=== PATIENT | male | born 1950 | race Caucasian/White ===

== ENCOUNTER 2016-12-25 08:33 | Day surgery (SDC) ==
[2016-12-25] MEDS ORDERED: LR 1,000 ML ONE (10:11)
[2016-12-25] MEDS ORDERED: REGLAN ONE (10:11)
[2016-12-25] MEDS ORDERED: PEPCID ONE (10:11)
[2016-12-25] MEDS ORDERED: KEFZOL 1 GM/D5W 50 ML ONE (10:12)
--- NOTE | 2016-12-25 11:03 | EKG Report ---
Test Performed on : 12/25/2016 10:24:23 AM Test Reason : per MD order Blood Pressure : / mmHG Vent. Rate : 052 BPM Atrial Rate : 052 BPM P-R Int : 182 ms QRS Dur : 140 ms QT Int : 482 ms P-R-T Axes : 036 -76 052 degrees QTc Int : 448 ms Sinus bradycardia. Right bundle branch block Left anterior fascicular block Bifascicular block Abnormal ECG No previous ECGs available Confirmed by Iliana SAEED, Shayne Shannon ([id number]) on 12/25/2016 3:42:29 PM
[2016-12-25] MEDS ORDERED: MARCAINE 0.25% PF/EPI 1:200,000 ONE (13:42)
[2016-12-25] MEDS ORDERED: DIPRIVAN 1% ONE (14:45)
--- NOTE | 2016-12-25 15:26 | OPERATIVE NOTE ---
PROCEDURE DATE: 12/25/2016 PREOPERATIVE DIAGNOSIS: Traumatic hematoma of the back. POSTOPERATIVE DIAGNOSIS: Traumatic hematoma of the back. PROCEDURE: Incision and drainage of seroma on the back. SURGEON: Preet Diaz MD. ANESTHESIA: General. ESTIMATED BLOOD LOSS: 10 mL. COMPLICATIONS: None apparent. FINDINGS: A large hematoma in the lumbosacral soft tissues. TECHNIQUE: He was brought to the operating room, general anesthesia was induced, and he was placed on his left side. He was prepped and draped in usual sterile fashion. An incision was made with a 15 blade through the skin and soft tissue of the right lower back. I entered the hematoma cavity. A large amount of thin hematoma fluid was drained out. An incision was made over the right lateral hip, and a #10 RANDY drain was placed in the abscess cavity and brought out through this lateral incision. It was anchored to the skin with 3-0 nylon. The skin was closed with interrupted 3-0 nylon. A sterile dressing was applied. There were no apparent complications.
[2016-12-25] MEDS ORDERED: NORCO-7.5 ONE (15:47)
[2016-12-25] MEDS ORDERED: NORCO-10 PO PRN (15:50)
[2016-12-25 16:12] VITALS: BP 156/98
== END 2016-12-25 16:15 | disposition home or self-care (01) ==
LOC: OR 08:33
PROVIDERS: ATTEND Surgery
DX: S30.0XXA Contusion of lower back and pelvis, initial encounter (principal); I10 Essential (primary) hypertension
CPT/HCPCS: 85014; 93005; 93010; J0690; J7120

== ENCOUNTER 2016-12-29 10:47 | Inpatient (IN) ==
[2016-12-29] MEDS ORDERED: ZOFRAN IV PRN (11:10)
[2016-12-29] MEDS ORDERED: SOLU-MEDROL 125 MG in NS 100 ML IV SCH (11:15)
[2016-12-29 12:48] LABS: MANUAL DIFF NEEDED? NO
[2016-12-29 12:52] LABS: BASO% 0.1 % (0.0-0.8); EOS# 0.01 X1000 (0.0-0.7); EOS% 0.1 % (0.0-10.0); HEMATOCRIT 42.3 % (42.0-52.0); HEMOGLOBIN 14.4 g/dL (14.0-18.0); IMM GRAN# 0.03 X1000 (0.0-0.04); IMM GRAN% 0.2 % (0.0-0.5); LYMPH% 4.9 % (20.5-51.1); MCH 30.6 PG (27-31); MONO# 1.61 X1000 (0.11-0.59); MONO% 11.4 % (1.7-9.3); MPV 11.3 FL (7.4-10.4); NEUT% 83.3 % (42.2-75.2); PLT 229 X1000 (130-400)
[2016-12-29] MEDS: ROCEPHIN 1 GM/NS 50 ML IV SCH (12:52)
[2016-12-29] MEDS: POTASSIUM CHLORIDE 20 MEQ, MAGNESIUM SULFATE 2 GM, THIAMINE 100 MG, FOLIC ACID 1 MG, M.... IV SCH ×12 (12:53→22:18)
[2016-12-29] MEDS: SOLU-MEDROL IV SCH ×2 (12:54→17:07)
[2016-12-29] MEDS ORDERED: TYLENOL PO PRN (13:04)
[2016-12-29 13:14] LABS: CALCIUM 8.8 mg/dL (8.8-10.2); POTASSIUM 3.6 mmol/L (3.5-5.1); TOTAL BILIRUBIN 0.5 mg/dL (0.20-1.00); TOTAL PROTEIN 6.9 g/dL (6.3-8.3)
[2016-12-29] MEDS: LEVAQUIN 500 MG/D5W 100 ML IV SCH (13:42)
--- NOTE | 2016-12-29 14:25 | Diag Imaging Result Document ---
PROCEDURE NAME: CHEST-2 VIEWS - 12/29/2016 FRONTAL AND LATERAL CHEST, TWO VIEWS: FINDINGS: The heart is not enlarged. The vessels are not distended. No pleural effusions. There are increased markings in the left base. No consolidation. Moderate degenerative spine changes. IMPRESSION: Atelectasis versus a small infiltrate in the left lower lobe.
--- NOTE | 2016-12-29 18:16 | HISTORY AND PHYSICAL ---
CHIEF COMPLAINT: Fever, weak, sick. PRESENT ILLNESS: This is a 66-year-old white male that underwent a outpatient surgical procedure on Wednesday of last week for a draining of a large hematoma of his lumbosacral area subcutaneous mass. Shortly after arriving home Wednesday evening he began having fever and chills and sweats which progressed to the weekend. Wednesday and Wednesday showed that his condition worsened. He was having clammy sweats, arthralgias, myalgias, felt terrible. Yesterday was the same. In spite of his 's urgings, he did not wish to come to the doctor. On the morning of this admission he did present to my office where he was found to be in moderate to severe distress due to weakness and generalized malaise and low-grade temperature of 100.9 degrees. Upon presenting to the exam room he became vasovagal with syncope. He was laid in the floor where he was evaluated. EKG showed normal sinus rhythm. Blood pressure showed 132/77. He is very clammy and slightly diaphoretic. His condition quickly improved with lying the patient on the floor, raising his legs. During the course of the workup here in the office a flu swab was obtained which revealed positive flu type A. His also tested positive. Because of his overall weakened condition, he is admitted for further evaluation and treatment. PAST SURGICAL HISTORY: He had a left knee arthroscope many years ago. MEDICAL ILLNESSES: He has no known medical illnesses other than maybe low-grade hypertension, some mild arthritis. CURRENT MEDICATIONS: Include lisinopril 10 mg a day, meloxicam 15 mg a day. ALLERGIES: To no known drugs. SOCIAL HISTORY: He is a white male with 1 child. Loves to [employer], loves to garden, works outside. He is retired from [employer]. He works for [employer] during the summer. SOCIAL HISTORY: He does not smoke. He does occasionally use smokeless skoal. He does not use alcohol. FAMILY HISTORY: Remarkable for his mom who is living at age 80. He has 2 brothers living, 5 sisters living. Dad of COPD at age 75. He has 2 sisters that had MIs. His father did have coronary artery bypass graft and had pancreatic cancer as well. PHYSICAL EXAMINATION: GENERAL: Shows a very pale, slightly clammy white male who is awake, alert at this time. VITAL SIGNS: Temperature is 100.9 degrees, pulse 74, respirations 24, unlabored, blood pressure 132/77, weight 214 pounds. HEENT: TMs are clear. Pupils are equally round, reactive. Nasal mucosa is moist. Oropharynx is slightly dry. NECK: Supple. No meningismus. LUNGS: Show very harsh rales, rhonchi bilaterally. HEART: With a slightly tachycardic rhythm. ABDOMEN: Soft, nontender, no masses. GENITOURINARY: Normal male. MUSCULOSKELETAL: Neurologically shows slight tenting of the skin. Moves all extremities symmetrically. He is awake, alert and oriented x3. He is however quite weak and has to walk with assistance. LABORATORY DATA: Flu swab as stated was positive for type A. White blood cell count 14.16, hemoglobin and hematocrit 14 and 42 respectively, MCV is 90, platelets 229,000, 83 polys. Sodium 133, potassium 3.6, chloride 99, CO2 21, BUN of 21, creatinine 1.5, glucose 108, calcium 8.8, total bilirubin 0.5, AST 28, ALT 27, alkaline phosphatase 58, CK 346. Troponin less than 0.010, total protein 6.9, albumin 4.0. Chest x-ray reveals what may be an area of atelectasis versus early infiltrate in the left lower lobe. EKG shows right bundle branch block with no acute ST wave change. IMPRESSION: 1. A 66-year-old white male with type A flu now with complicated course of progressive malaise, syncopal episode in my office. 2. Possible early pneumonia of the left lower lobe. 3. Dehydration with slight elevation of creatinine. 4. Mild hyponatremia. PLAN: 1. Admit to [place]. 2. IV fluid resuscitation. 3. Blood cultures. 4. Urine culture. 5. Will start IV Levaquin and Rocephin. 6. Will start p.o. Tamiflu 75 mg b.i.d. for 5 days. We will need to watch and observe him very cautiously.
[2016-12-29] MEDS: ALBUTEROL NEB INH SCH (21:04)
[2016-12-29] MEDS: TUSSIONEX LIQUID PO SCH (22:11)
[2016-12-29] MEDS: TAMIFLU PO SCH (22:11)
[2016-12-29] MEDS: LOVENOX SUBQ SCH (22:16)
[2016-12-30] MEDS: SOLU-MEDROL IV SCH ×4 (00:59→18:10)
[2016-12-30] MEDS: ALBUTEROL NEB INH SCH ×4 (03:52→20:04)
[2016-12-30] MEDS: TUSSIONEX LIQUID PO SCH ×2 (09:46→22:12)
[2016-12-30] MEDS: TAMIFLU PO SCH ×2 (09:46→22:11)
[2016-12-30] MEDS: POTASSIUM CHLORIDE 20 MEQ, MAGNESIUM SULFATE 2 GM, THIAMINE 100 MG, FOLIC ACID 1 MG, M.... IV SCH ×6 (12:06)
[2016-12-30] MEDS: ROCEPHIN 1 GM/NS 50 ML IV SCH (12:06)
[2016-12-30] MEDS: LEVAQUIN 500 MG/D5W 100 ML IV SCH (14:41)
[2016-12-30] MEDS: LOVENOX SUBQ SCH (22:11)
[2016-12-31] MEDS: POTASSIUM CHLORIDE 20 MEQ, MAGNESIUM SULFATE 2 GM, THIAMINE 100 MG, FOLIC ACID 1 MG, M.... IV SCH ×12 (01:33→05:44)
[2016-12-31] MEDS: SOLU-MEDROL IV SCH ×3 (01:35→12:13)
[2016-12-31] MEDS: ALBUTEROL NEB INH SCH ×2 (04:28→08:10)
[2016-12-31] MEDS: TAMIFLU PO SCH (09:02)
[2016-12-31] MEDS: TUSSIONEX LIQUID PO SCH (09:02)
[2016-12-31 09:51] LABS: URINE SOURCE CLEAN CATCH
[2016-12-31 10:25] LABS: BILIRUBIN URINE NEGATIVE (NEGATIVE); BLOOD URINE NEGATIVE (NEGATIVE); CLARITY CLEAR (CLEAR); COLOR YELLOW; LEUKOCYTES URINE TRACE (NEGATIVE); NITRITE URINE NEGATIVE (NEGATIVE); PROTEIN URINE TRACE mg/dL (NEGATIVE); URINE MICROSCOPIC NEEDED? YES; UROBILINOGEN URINE NORMAL
[2016-12-31 10:30] LABS: URINE EPITHELIAL CELLS <10 /HPF (<10); URINE WBC <10 /HPF (<10)
[2016-12-31] MEDS: ROCEPHIN 1 GM/NS 50 ML IV SCH (12:13)
[2016-12-31 12:30] VITALS: BP 125/65
--- NOTE | 2016-12-31 13:02 | PROGRESS NOTE ---
DATE: 12/30/2016 CHIEF COMPLAINT: Feeling much better. VITAL SIGNS: Temperature 98.1 degrees, heart rate 94, respirations 20 and nonlabored, blood pressure 113/58, and O2 saturation 91% on room air. URINE OUTPUT: 1600 mL. LABORATORY DATA: Preliminary blood cultures are negative. PHYSICAL EXAMINATION: General: The patient is awake and alert, eating breakfast. Lungs: A few rhonchi bilaterally. Heart: Regular rate and rhythm. Abdomen: Soft and nontender. The area of the lumbosacral area with the surgical dressing and Curt-Green is clear. There is approximately 30 mL of serosanguineous drainage in the Curt-Green. IMPRESSIONS: 1. Acute influenza syndrome, slowly improving. 2. Hemodynamically stable. 3. Appetite is improving. 4. Surgical site is doing well. Curt-Green is draining. I did discuss with Dr. Diaz the fact that patient was in the hospital with influenza and would not be able to follow up in his office today. He recommended maintaining the Curt-Green and they will see him one day next week in the office for follow up. PLAN: 1. Will continue hydration. 2. Continue medications. 3. Should be able to go home on .
--- NOTE | 2016-12-31 13:03 | PROGRESS NOTE ---
DATE: 12/31/2016 CHIEF COMPLAINT: None. Ready to go. VITAL SIGNS: Temperature is 97.2 degrees, pulse 93, respirations 20, blood pressure 167/85, and O2 saturation 93% on room air. LABORATORIES: Blood cultures were negative for 48 hours. URINE OUTPUT: 550 mL. PHYSICAL EXAMINATION: General: Patient is awake and alert. He has just finished eating lunch. Lungs: Clear breath sounds. No rhonchi. Heart: Regular rate and rhythm. Abdomen: Soft and nontender. Musculoskeletal: Surgical dressings intact. Curt-Green is still draining and has approximately 15 mL of serosanguineous fluid. In the last 2 days, he has had 85 mL out. IMPRESSIONS: 1. Acute influenza syndrome, resolving. 2. Overall condition is remarkably improved. PLAN: 1. We will discharge today. 2. He will follow up with me next week in the office. 3. He will complete his Tamiflu. 4. We will also get him an appointment for followup with Dr. Preet Diaz. -2
--- NOTE | 2017-01-01 06:10 | DISCHARGE SUMMARY ---
ADMISSION DATE: 12/29/2016 DISCHARGE DATE: 12/31/2016 PRIMARY DISCHARGE DIAGNOSIS: Acute influenza syndrome. OTHER DIAGNOSES: 1. Dehydration. 2. Left lower lobe pneumonia. 3. Bronchitis. PRIMARY PROCEDURE PERFORMED: IV fluid rehydration. OTHER PROCEDURES: 1. Tamiflu p.o. 2. Isolation. 3. Intravenous corticosteroids. 4. Antibiotic therapy/septic protocol. DISPOSITION: The patient will be discharged home in good condition. He will resume his home medications. NEW MEDICATIONS: 1. Levaquin 500 mg 1 a day for 5 days. 2. Tamiflu 1 b.i.d. for 2 more days. DISCHARGE INSTRUCTIONS: He was instructed to adhere to bed rest. Appointment will be made to see Dr. Preet Diaz for followup regarding his Curt-Green surgical drain. He will also see me next week for follow up. He will rest and curtail his activities appropriately. HISTORY OF PRESENT ILLNESS: This is a 66-year-old white male who was admitted after having acute influenza syndrome with dehydration and syncopal episodes. LABORATORY DATA: White blood cell count on admission 14.16, hemoglobin and hematocrit 14 and 42, MCV was 90. Platelets 229,000, 83% neutrophils. Sodium was 133, potassium 3.6, BUN and creatinine 21 and 1.5 respectively. Glucose 108. CK was 346. Troponin less than 0.010, plasma lactate 2.6. Urinalysis: Specific gravity 1.020, trace of WBC. Chest x-ray demonstrated left lower lobe infiltrate consistent with early pneumonic infiltrate. Blood cultures were negative. HOSPITAL COURSE: The patient was admitted. He was placed on IV fluid resuscitation. He was also given intravenous Solu-Medrol 125 mg q.6 hours. Nebulizer therapy. His condition remarkably improved. His appetite improved. The patient defervesced his temperature. He ambulated to the bathroom without syncopal episodes. Long discussion was made with he and his family. He will be discharged as stated.
== END 2016-12-31 14:58 | disposition home or self-care (01) | DRG 194 ==
LOC: P.DIRADM 10:47 → P.MEDSURG 11:43
PROVIDERS: ADMIT Family Medicine; ATTEND Family Medicine
DX: J11.00 Influenza due to unidentified influenza virus with unspecified type of pneumonia (principal); E87.1 Hypo-osmolality and hyponatremia; I10 Essential (primary) hypertension; J18.0 Bronchopneumonia, unspecified organism; E86.0 Dehydration; M19.90 Unspecified osteoarthritis, unspecified site; Z79.899 Other long term (current) drug therapy; Z79.1 Long term (current) use of non-steroidal anti-inflammatories (NSAID); Z72.0 Tobacco use; Z82.49 Family history of ischemic heart disease and other diseases of the circulatory system; Z80.0 Family history of malignant neoplasm of digestive organs
CPT/HCPCS: 71020; 80053; 81001; 82550; 83605; 84484; 85025; 87040; 87070; 87088; 87205; 94640; 94761; J0696; J1650; J2930; J3411; J3475; J3480